=== PATIENT | female | born 1940 | race Caucasian/White ===

== ENCOUNTER → 2017-03-28 | Day surgery (SDC) | payer MEDICAID ==
[~2017-03-28] VITALS: Ht 149.9 cm; Wt 54.4 kg
[~2017-03-28] MED LIST: ACET-2708 PO; ASPI-1035 PO; BALANCED SALT IRRIG SOLN 15ML ONE; BALANCED SALT IRRIG SOLN COMB1 500ML OP ONE; BECL8.7A5 INH; BENA5TAB3 PO; BUPIVACAINE HCL/PF 0.75% (7.5MG/ML) 10ML ONE; CIPR1DRO2 LEFTEYE; CIPROFLOXACIN 0.3% OPHTH SOLN 2.5ML ONE; CYCLOPENTOLATE HCL 1% OPHTH DROPS 2ML LEFTEYE ONE; CYCLOPENTOLATE HCL 1% OPHTH DROPS 2ML ONE; FENTANYL CITRATE/PF 50MCG/ML 2ML VIAL ONE; HYALURONATE SODIUM 14 MG/ML 0.85ML SYRINGE IO ONE; HYDROMORPHONE HCL/PF 2MG/ML CPJ IV PRN; LABETALOL HCL 20MG/4ML CARPUJECT IV PRN; LACTATED RINGERS 1,000 ML IV SCH; LIDOCAINE HCL 2%/EPINEPHRINE 1:100,000 20 ML VIAL INFIL ONE; LIDOCAINE HCL/PF 2% 20 MG/ML 10ML VIAL ONE; LOSA25TA12 PO; MEPERIDINE HCL/PF 25MG/ML CPJ IV PRN; MIDAZOLAM HCL 2 MG/2 ML VIAL ONE; MONT10TA24 PO; NEO/POLYMYX B SULF/DEXAMETH OPHTH OINT 3.5GM ONE; ONDA4TAB50 PO; ONDANSETRON HCL 4MG/2ML VIAL IV PRN; P20 PO; PHENYLEPHRINE HCL 10% OPHTH DROPS 5ML LEFTEYE ONE; PHENYLEPHRINE HCL 10% OPHTH DROPS 5ML ONE; PRED5DRO7 LEFTEYE; PREDNISOLONE ACETATE 1% OPHTH DROPS 1ML ONE; SIMV10TA6 PO; TETRACAINE 0.5% OPHTH DROPS 4ML ONE; TRAM50TA3 PO; TROPICAMIDE 1% OPHTH DROPS 15ML LEFTEYE ONE; TROPICAMIDE 1% OPHTH DROPS 15ML ONE
[2017-03-28 12:28] LABS: BASOPHILS % 1.2 % (0.0-2.0); EOSINOPHILS % 1.7 % (0.0-5.0); HEMOGLOBIN. 13.5 g/dL (12.0-16.0); LYMPHOCYTES % 19.6 % (20.0-50.0); MEAN CORPUSCULAR HEMOGLOBIN 29.8 pg (28.0-32.0); MEAN CORPUSCULAR HGB CONC 33.6 g/dL (31.0-37.0); MEAN CORPUSCULAR VOLUME 88.6 fL (81.0-99.0); MEAN PLATELET VOLUME 7.3 fl (7.4-10.4); MONOCYTES % 6.3 % (2.0-8.0); NEUTROPHILS % 71.2 % (40.0-76.0); PLATELET 283 x1000/uL (130-400); RED BLOOD CELL COUNT 4.52 mill/uL (4.2-5.4); RED CELL DISTRIBUTION WIDTH 14.4 % (11.6-14.6); WHITE BLOOD COUNT 8.7 x1000/uL (4.5-11.0)
[2017-03-28 12:36] LABS: ANION GAP 11; CALCIUM 9.3 mg/dL (8.5-10.1); CARBON DIOXIDE 29 mEq/L (21-32); CHLORIDE 103 mEq/L (98-107); INDEX HEMOLYSI 1 (1-3); INDEX ICTERIC 1 (1-4); INDEX LIPEMIC 1 (1-3); UREA NITROGEN BLOOD 9 mg/dL (7-21)
[2017-03-28 12:37] LABS: eGFR > 60 mL/min (>60)
== END | disposition home or self-care (01) ==
LOC: OR 09:56
PROVIDERS: ATTEND Ophthalmology
DX: H25.89 Other age-related cataract (principal); H21.542 Posterior synechiae (iris), left eye; Z98.890 Other specified postprocedural states
CPT/HCPCS: 36415; 66982; 67010; 80048; 85025; 93005; J2250; J3010; J3490; J7120; V2632

== ENCOUNTER 2017-09-19 11:41 | Inpatient (IN) | payer MEDICAID ==
[~2017-09-19] VITALS: Ht 152.4 cm; Wt 59.7 kg
[~2017-09-19 11:41] MED LIST changes: -ASPI-1035 PO; +ASPI-1159 PO; -BALANCED SALT IRRIG SOLN 15ML ONE; -BALANCED SALT IRRIG SOLN COMB1 500ML OP ONE; -BECL8.7A5 INH; -BENA5TAB3 PO; -BUPIVACAINE HCL/PF 0.75% (7.5MG/ML) 10ML ONE; -CIPR1DRO2 LEFTEYE; -CIPROFLOXACIN 0.3% OPHTH SOLN 2.5ML ONE; -CYCLOPENTOLATE HCL 1% OPHTH DROPS 2ML LEFTEYE ONE; -CYCLOPENTOLATE HCL 1% OPHTH DROPS 2ML ONE; -FENTANYL CITRATE/PF 50MCG/ML 2ML VIAL ONE; -HYALURONATE SODIUM 14 MG/ML 0.85ML SYRINGE IO ONE; -HYDROMORPHONE HCL/PF 2MG/ML CPJ IV PRN; -LABETALOL HCL 20MG/4ML CARPUJECT IV PRN; -LACTATED RINGERS 1,000 ML IV SCH; -LIDOCAINE HCL 2%/EPINEPHRINE 1:100,000 20 ML VIAL INFIL ONE; -LIDOCAINE HCL/PF 2% 20 MG/ML 10ML VIAL ONE; -MEPERIDINE HCL/PF 25MG/ML CPJ IV PRN; -MIDAZOLAM HCL 2 MG/2 ML VIAL ONE; -NEO/POLYMYX B SULF/DEXAMETH OPHTH OINT 3.5GM ONE; -ONDA4TAB50 PO; -ONDANSETRON HCL 4MG/2ML VIAL IV PRN; -P20 PO; -PHENYLEPHRINE HCL 10% OPHTH DROPS 5ML LEFTEYE ONE; -PHENYLEPHRINE HCL 10% OPHTH DROPS 5ML ONE; -PRED5DRO7 LEFTEYE; -PREDNISOLONE ACETATE 1% OPHTH DROPS 1ML ONE; -TETRACAINE 0.5% OPHTH DROPS 4ML ONE; -TRAM50TA3 PO; -TROPICAMIDE 1% OPHTH DROPS 15ML LEFTEYE ONE; -TROPICAMIDE 1% OPHTH DROPS 15ML ONE
[2017-09-19] MEDS ORDERED: TETRACAINE 0.5% OPHTH DROPS 4ML BOTHEYE ONE (12:45)
[2017-09-19] MEDS ORDERED: ACETAZOLAMIDE SODIUM 500MG/VIAL IV ONE (14:00)
[2017-09-19 14:21] LABS: BASOPHILS % 0.5 % (0.0-2.0); EOSINOPHILS % 1.3 % (0.0-5.0); HEMATOCRIT. 41.1 % (36.0-48.0); HEMOGLOBIN. 13.8 g/dL (12.0-16.0); MEAN CORPUSCULAR HEMOGLOBIN 30.5 pg (28.0-32.0); MEAN CORPUSCULAR VOLUME 90.4 fL (81.0-99.0); MEAN PLATELET VOLUME 8.3 fl (7.4-10.4); MONOCYTES % 4.9 % (2.0-8.0); NEUTROPHILS % 77.3 % (40.0-76.0); PLATELET 328 x1000/uL (130-400); RED BLOOD CELL COUNT 4.54 mill/uL (4.2-5.4); RED CELL DISTRIBUTION WIDTH 14.2 % (11.6-14.6)
[2017-09-19 14:32] LABS: CHLORIDE 104 mEq/L (98-107)
[2017-09-19 14:33] LABS: PROTHROMBIN TIME 10.3 sec (9.4-11.6)
[2017-09-19 14:40] LABS: CARBON DIOXIDE 24 mEq/L (21-32)
[2017-09-19] MEDS ORDERED: ACETAZOLAMIDE 250MG TABLET PO ONE (15:15)
[2017-09-19] MEDS ORDERED: DOCUSATE SODIUM 100MG CAPSULE PO PRN (16:15)
[2017-09-19] MEDS ORDERED: MAGNESIUM/ALUMINUM HYDROXIDE/SIMETHICONE 30ML UDC PO PRN (16:15)
[2017-09-19] MEDS ORDERED: IPRATROPIUM/ALBUTEROL 0.5-3(2.5)MG/3ML NEB INH PRN (16:15)
[2017-09-19] MEDS ORDERED: ONDANSETRON HCL 4MG/2ML VIAL IV PRN (16:15)
[2017-09-19] MEDS ORDERED: ACETAMINOPHEN 325MG TABLET PO PRN (16:15)
[2017-09-19] MEDS ORDERED: CLONIDINE 0.1MG TABLET PO PRN (16:15)
[2017-09-19] MEDS ORDERED: PREDNISOLONE ACETATE 1% OPHTH DROPS 1ML LEFTEYE SCH (18:00)
[2017-09-19 19:45] VITALS: BP 122/74
[2017-09-19 19:53] LABS: CARBON DIOXIDE 23 mEq/L (21-32); CHLORIDE 108 mEq/L (98-107)
[2017-09-19 20:00] VITALS: BP 122/74
[2017-09-19] MEDS ORDERED: ACETAZOLAMIDE SODIUM 500MG/VIAL IV NR (20:00)
[2017-09-19] MEDS: SODIUM CHLORIDE 0.9% 1,000 ML IV SCH (20:25)
[2017-09-19] MEDS: TIMOLOL MALEATE 0.5% OPHTH DROPS 5ML LEFTEYE SCH (20:50)
[2017-09-19] MEDS: CIPROFLOXACIN 0.3% OPHTH SOLN 2.5ML LEFTEYE SCH (20:50)
[2017-09-19] MEDS: LATANOPROST 0.005% OPHTH DROPS 2.5ML LEFTEYE SCH (20:50)
[2017-09-19] MEDS ORDERED: TIMOLOL MALEATE 0.5% OPHTH DROPS 5ML LEFTEYE SCH (21:00)
[2017-09-19] MEDS: PILOCARPINE HCL 2% OPHTH DROPS 15ML LEFTEYE SCH (21:34)
[2017-09-19] MEDS: ACETAZOLAMIDE 250MG TABLET PO SCH (21:35)
[2017-09-19 23:28] LABS: CREATINE KINASE 34 IU/L (26-192); CREATINE KINASE MB FRACTION 0.6 ng/mL (0.5-3.6); TROPONIN I < 0.02 ng/mL (0.00-0.04)
[2017-09-19] MEDS: PREDNISOLONE ACETATE 1% OPHTH DROPS 1ML LEFTEYE SCH (23:52)
[2017-09-20 00:05] VITALS: BP 139/72
[2017-09-20 04:00] VITALS: BP 126/69
[2017-09-20] MEDS: ACETAZOLAMIDE 250MG TABLET PO SCH ×3 (05:26→21:52)
[2017-09-20] MEDS: PREDNISOLONE ACETATE 1% OPHTH DROPS 1ML LEFTEYE SCH ×5 (05:26→23:55)
[2017-09-20] MEDS: PILOCARPINE HCL 2% OPHTH DROPS 15ML LEFTEYE SCH ×3 (05:26→22:52)
[2017-09-20 06:15] LABS: BASOPHILS % 0.9 % (0.0-2.0); EOSINOPHILS % 2.7 % (0.0-5.0); HEMATOCRIT. 39.8 % (36.0-48.0); HEMOGLOBIN. 13.5 g/dL (12.0-16.0); LYMPHOCYTES % 29.3 % (20.0-50.0); MEAN CORPUSCULAR HEMOGLOBIN 30.7 pg (28.0-32.0); MEAN CORPUSCULAR VOLUME 90.1 fL (81.0-99.0); MONOCYTES % 7.5 % (2.0-8.0); NEUTROPHILS % 59.6 % (40.0-76.0); PLATELET 313 x1000/uL (130-400); RED BLOOD CELL COUNT 4.41 mill/uL (4.2-5.4); RED CELL DISTRIBUTION WIDTH 14.6 % (11.6-14.6)
[2017-09-20 06:48] LABS: CREATINE KINASE 32 IU/L (26-192); CREATINE KINASE MB FRACTION 0.6 ng/mL (0.5-3.6); TROPONIN I < 0.02 ng/mL (0.00-0.04)
[2017-09-20 08:00] VITALS: BP 141/73
[2017-09-20] MEDS: TIMOLOL MALEATE 0.5% OPHTH DROPS 5ML LEFTEYE SCH ×2 (08:52→21:52)
[2017-09-20] MEDS: CIPROFLOXACIN 0.3% OPHTH SOLN 2.5ML LEFTEYE SCH ×4 (08:52→21:52)
[2017-09-20] MEDS ORDERED: MORPHINE SULFATE 4 MG/ML CPJ (NOT FOR IM USE) IV PRN (11:00)
[2017-09-20] MEDS: SODIUM CHLORIDE 0.9% 1,000 ML IV SCH (11:40)
[2017-09-20 12:00] VITALS: BP_SYST 126; BP_SYST 146; BP_DIAS 67; BP_DIAS 70
[2017-09-20 12:45] LABS: HEMATOCRIT 40.2 % (36.0-48.0); HEMOGLOBIN 13.4 g/dL (12.0-16.0); MEAN CORPUSCULAR VOLUME 89.7 fL (81.0-99.0); PLATELET 304 x1000/uL (130-400); RED BLOOD CELL COUNT 4.48 mill/uL (4.2-5.4); RED CELL DISTRIBUTION WIDTH 14.3 % (11.6-14.6)
[2017-09-20 13:05] LABS: CARBON DIOXIDE 21 mEq/L (21-32); CHLORIDE 109 mEq/L (98-107)
[2017-09-20 20:00] VITALS: BP 133/66
[2017-09-20] MEDS: LATANOPROST 0.005% OPHTH DROPS 2.5ML LEFTEYE SCH (21:52)
[2017-09-21] VITALS: BP 128/76
[2017-09-21] MEDS ORDERED: GUAIFENESIN 200MG/10ML SUGAR FREE UDC PO PRN
[2017-09-21 04:00] VITALS: BP 125/68
[2017-09-21] MEDS: SODIUM CHLORIDE 0.9% 1,000 ML IV SCH (04:29)
[2017-09-21] MEDS: ACETAZOLAMIDE 250MG TABLET PO SCH ×3 (05:30→21:58)
[2017-09-21] MEDS: PREDNISOLONE ACETATE 1% OPHTH DROPS 1ML LEFTEYE SCH ×5 (05:31→19:20)
[2017-09-21] MEDS: PILOCARPINE HCL 2% OPHTH DROPS 15ML LEFTEYE SCH ×4 (05:31→19:20)
[2017-09-21 08:00] VITALS: BP 115/70
[2017-09-21] MEDS: TIMOLOL MALEATE 0.5% OPHTH DROPS 5ML LEFTEYE SCH ×3 (09:06→19:20)
[2017-09-21] MEDS: CIPROFLOXACIN 0.3% OPHTH SOLN 2.5ML LEFTEYE SCH ×5 (09:06→19:20)
[2017-09-21 12:00] VITALS: BP 123/65
[2017-09-21] MEDS ORDERED: TRIAMCINOLONE ACETONIDE 40MG/ML 1ML VIAL ONE (12:21)
[2017-09-21] MEDS ORDERED: MIDAZOLAM HCL 2 MG/2 ML VIAL ONE (13:58)
[2017-09-21] MEDS ORDERED: FENTANYL CITRATE/PF 50MCG/ML 2ML VIAL ONE (13:58)
[2017-09-21] MEDS ORDERED: NEO/POLYMYX B SULF/DEXAMETH OPHTH OINT 3.5GM ONE (14:00)
[2017-09-21] MEDS ORDERED: TETRACAINE 0.5% OPHTH DROPS 4ML ONE (14:00)
[2017-09-21] MEDS ORDERED: BUPIVACAINE HCL/PF 0.75% (7.5MG/ML) 10ML ONE (14:00)
[2017-09-21] MEDS ORDERED: CIPROFLOXACIN 0.3% OPHTH SOLN 2.5ML ONE (14:00)
[2017-09-21] MEDS ORDERED: PREDNISOLONE ACETATE 1% OPHTH DROPS 1ML ONE (14:00)
[2017-09-21] MEDS ORDERED: CYCLOPENTOLATE HCL 1% OPHTH DROPS 2ML ONE (14:00)
[2017-09-21] MEDS ORDERED: BALANCED SALT IRRIG SOLN 15ML ONE (14:00)
[2017-09-21] MEDS ORDERED: LIDOCAINE HCL 2%/EPINEPHRINE 1:100,000 20 ML VIAL INFIL ONE (14:00)
[2017-09-21] MEDS ORDERED: DEXAMETHASONE 4MG/ML 1ML VIAL ONE (14:22)
[2017-09-21] MEDS ORDERED: SODIUM CHLORIDE 0.9% 10ML VIAL ONE (14:22)
[2017-09-21] MEDS ORDERED: PROPOFOL 200MG/20ML VIAL IV ONE (14:22)
[2017-09-21] MEDS ORDERED: CEFAZOLIN SODIUM 1000MG/VIAL ONE (14:22)
[2017-09-21] MEDS ORDERED: LIDOCAINE HCL 1% 20ML VIAL (Pyxis) INJ ONE (14:22)
[2017-09-21] MEDS ORDERED: ONDANSETRON HCL 4MG/2ML VIAL ONE (14:23)
[2017-09-21] MEDS ORDERED: LABETALOL HCL 20MG/4ML CARPUJECT IV PRN (14:30)
[2017-09-21] MEDS ORDERED: MEPERIDINE HCL/PF 25MG/ML CPJ IV PRN (14:30)
[2017-09-21] MEDS ORDERED: HYDROMORPHONE HCL/PF 2MG/ML CPJ IV PRN (14:30)
[2017-09-21] MEDS ORDERED: ONDANSETRON HCL 4MG/2ML VIAL IV PRN (14:30)
[2017-09-21 17:05] VITALS: BP 135/76
[2017-09-21] MEDS: LATANOPROST 0.005% OPHTH DROPS 2.5ML LEFTEYE SCH ×2 (19:18→19:20)
[2017-09-21] MEDS ORDERED: ACETAMINOPHEN 500MG TABLET PO PRN (19:30)
[2017-09-21 20:00] VITALS: BP 144/69
[2017-09-21] MEDS: HYDROCODONE/ACETAMINOPHEN 5/325MG TABLET PO PRN (22:02)
[2017-09-22] VITALS: BP 127/70
[2017-09-22 04:00] VITALS: BP 121/62
[2017-09-22 04:51] VITALS: BP 121/62
[2017-09-22] MEDS: HYDROCODONE/ACETAMINOPHEN 5/325MG TABLET PO PRN (05:14)
[2017-09-22] MEDS: ACETAZOLAMIDE 250MG TABLET PO SCH (05:14)
[2017-09-22 08:00] VITALS: BP 120/60
== END 2017-09-22 09:10 | disposition home or self-care (01) | DRG 70 ==
LOC: ER 11:51 → 7WST 16:12 → ENRESERV 16:43
PROVIDERS: ADMIT Internal Medicine; ATTEND Internal Medicine
PROC: 08P Eye, Removal (ICD-10-PCS; 2017-09-21)
PROC: 08133J4 Bypass Left Anterior Chamber to Sclera with Synthetic Substitute, Percutaneous Approach (ICD-10-PCS; principal; 2017-09-21 13:00)
DX: H40.212 Acute angle-closure glaucoma, left eye (principal); E87.1 Hypo-osmolality and hyponatremia; E87.8 Other disorders of electrolyte and fluid balance, not elsewhere classified; I10 Essential (primary) hypertension; J45.909 Unspecified asthma, uncomplicated; Z90.710 Acquired absence of both cervix and uterus; Z94.7 Corneal transplant status; Z79.82 Long term (current) use of aspirin; Z79.899 Other long term (current) drug therapy; E87.6 Hypokalemia
CPT/HCPCS: 36415; 70450; 71010; 80048; 80053; 82550; 82553; 84484; 85025; 85027; 85610; 93005; 93970; 99285; A4216; J0690; J1100; J1120; J2250; J2405; J2704; J3010; J3301; J3490; J7030

== ENCOUNTER 2019-06-04 08:20 | Day surgery (SDC) | payer MEDICAID ==
[~2019-06-04] VITALS: Ht 149.9 cm; Wt 53.5 kg
[~2019-06-04 08:20] MED LIST changes: -ASPI-1159 PO; +ASPI-1393 PO; -LOSA25TA12 PO; +LOSA25TA26 PO
[2019-06-04] MEDS ORDERED: PREDNISOLONE ACETATE 1% OPHTH DROPS 1ML ONE (08:22)
[2019-06-04] MEDS ORDERED: CIPROFLOXACIN 0.3% OPHTH SOLN 2.5ML ONE (08:22)
[2019-06-04] MEDS ORDERED: NEO/POLYMYX B SULF/DEXAMETH OPHTH OINT 3.5GM ONE (08:22)
[2019-06-04] MEDS ORDERED: TETRACAINE 0.5% OPHTH DROPS 4ML ONE (08:22)
[2019-06-04] MEDS ORDERED: LIDOCAINE HCL/PF 2% 20 MG/ML 10ML VIAL ONE (08:22)
[2019-06-04] MEDS ORDERED: BALANCED SALT IRRIG SOLN 15ML ONE (08:22)
[2019-06-04] MEDS ORDERED: BALANCED SALT IRRIG SOLN COMB1 500ML OP ONE (08:45)
[2019-06-04] MEDS ORDERED: HYALURONATE SODIUM 14 MG/ML 0.85ML SYRINGE IO ONE (08:59)
[2019-06-04] MEDS ORDERED: CYCLOPENTOLATE HCL 1% OPHTH DROPS 2ML RIGHTEYE ONE (09:00)
[2019-06-04] MEDS ORDERED: TROPICAMIDE 1% OPHTH DROPS 15ML RIGHTEYE ONE (09:00)
[2019-06-04] MEDS ORDERED: PHENYLEPHRINE HCL 10% OPHTH DROPS 5ML RIGHTEYE ONE (09:00)
[2019-06-04] MEDS ORDERED: LACTATED RINGERS 1,000 ML IV SCH (09:20)
== END 2019-06-04 12:00 | disposition home or self-care (01) ==
LOC: OR 08:20
PROVIDERS: ATTEND Ophthalmology
DX: H25.89 Other age-related cataract (principal); I10 Essential (primary) hypertension; E78.00 Pure hypercholesterolemia, unspecified; J44.9 Chronic obstructive pulmonary disease, unspecified; M19.90 Unspecified osteoarthritis, unspecified site; H40.9 Unspecified glaucoma; M81.0 Age-related osteoporosis without current pathological fracture; Z79.899 Other long term (current) drug therapy; Z98.890 Other specified postprocedural states
CPT/HCPCS: 66984; J2250; J3490; V2632